=== PATIENT | male | born 1960 | race Caucasian/White ===

== ENCOUNTER 2024-12-05 10:12 | Emergency (ER) | payer BC ==
[~2024-12-05] VITALS: Ht 185.4 cm; Wt 61.2 kg
[2024-12-05] MEDS ORDERED: CEFTRIAXONE 1GM BAG (ER ONLY) 50 ML IV ONE (10:44)
[2024-12-05 10:49] LABS: PLATELET COUNT (AUTO) 226 K/uL (150-450); RED BLOOD CELL COUNT(AUTO) 3.89 MIL/uL (4.5-6.0); RED CELL DISTRIBUTION WIDTH 13.9 % (11.5-15.0); WHITE BLOOD COUNT (AUTO) 12.3 K/uL (4.3-11.0)
[2024-12-05] MEDS: CEFTRIAXONE 1 G in IV D5W 50 ML IV ONE (10:56)
[2024-12-05] MEDS: IV NS 0.9% 1,000 ML BAG IV ONE (10:56)
[2024-12-05 10:58] LABS: CALCIUM, SERUM 8.9 mg/dL (8.5-10.1); CREATININE 1.1 mg/dL (0.6-1.3); SODIUM SERUM 138 mmol/L (136-145); UREA NITROGEN, BLOOD 14 mg/dL (7-18)
[2024-12-05 11:04] LABS: ASPARTATE AMINOTRANSFERASE 17 U/L (15-37); TOTAL PROTEIN, SERUM 7.1 g/dL (6.4-8.2)
[2024-12-05 11:05] LABS: INR 1.08 (0.91-1.10)
[2024-12-05 11:06] LABS: APPEARANCE,URINE CLEAR (CLEAR); BLOOD, URINE NEGATIVE Ery/uL (NEGATIVE); LEUKOCYTE ESTERASE ,URINE NEGATIVE (NEGATIVE); NITRITE, URINE NEGATIVE (NEGATIVE); UGLUCOSE NEGATIVE (NEGATIVE)
[2024-12-05 11:08] LABS: LACTIC ACID 2.0 mmol/L (0.4-2.0)
[2024-12-05] MEDS ORDERED: AMLO-213 PO (11:19)
[2024-12-05 11:21] LABS: ADD URINE CULTURE NO; SQUAMOUS EPITHELIAL CELL,UR Few /HPF (None Seen)
[2024-12-05] MEDS ORDERED: IOHEXOL-350 100 ML VIAL IV ONE (11:39)
[2024-12-05] MEDS ORDERED: IV NS 0.9% 250 ML IV ONE (11:40)
[2024-12-05 13:00] VITALS: TEMP 98.1
[2024-12-05] MEDS ORDERED: METRONIDAZOLE 500MG/ NS 100ML 100 ML IV ONE (14:13)
[2024-12-05] MEDS: FLAGYL/NS RTU 500 MG/100 ML PIGGYBACK IV ONE (14:20)
[2024-12-05 15:18] VITALS: BP 141/92; O2SAT 97
== END 2024-12-05 17:23 | disposition short-term general hospital (02) ==
LOC: ER 10:28
DX: J18.9 Pneumonia, unspecified organism (principal); R00.0 Tachycardia, unspecified; I10 Essential (primary) hypertension; Z85.818 Personal history of malignant neoplasm of other sites of lip, oral cavity, and pharynx; Z20.822 Contact with and (suspected) exposure to COVID-19
CPT/HCPCS: 99291; 96365; 71275; 71045; 96367; 87426; 93005; 87804 ×2; 84145; 85025; 80048; 87077; 87086; 83605 ×2; 80076; 81001; 36415; 84484; 85730; 83880; 87040 ×2; 87081; J0696 ×2; J7060; J7050; Q9967